=== PATIENT | female | born 1995 | race Caucasian/White ===

== ENCOUNTER 2017-04-04 14:57 | Emergency (ER) | payer OTHER, BC ==
[~2017-04-04] VITALS: Ht 160 cm; Wt 112.0 kg
[2017-04-04 15:04] VITALS: TEMP 37.5; Ht 160 cm; Wt 112.0 kg
[2017-04-04] MEDS ORDERED: ASPI-390 PO (15:37)
--- NOTE | 2017-04-04 16:03 | DIAGNOSTIC IMAGING REPORT ---
STANDING LUMBAR SPINE RADIOGRAPHS CLINICAL HISTORY: Low back pain/injury. COMPARISON: None FINDINGS: There is slight rightward curvature of the lumbar spine. Alignment is otherwise anatomic. Vertebral body heights are maintained. No lumbar spine fracture is identified. No osseous lesion is identified. The disc spaces are preserved. IMPRESSION: 1. Slight rightward curvature of the lumbar spine. 2. Otherwise, unremarkable radiographic appearance of the lumbar spine. Electronically signed by: Nito Mcclellan M.D. 04/04/2017 4:02 PM Dictated Date/Time: 04/04/2017 4:01 PM
[2017-04-04] MEDS ORDERED: OXYCODONE HCL IR 5 MG TAB (IMMEDIATE RELEASE) PO STA (16:15)
[2017-04-04] MEDS ORDERED: PRED50TA PO (16:18)
[2017-04-04] MEDS ORDERED: OXYC1TAB3 PO (16:18)
[2017-04-04] MEDS ORDERED: CYCL10TA6 PO (16:18)
[2017-04-04] MEDS ORDERED: OXYCODONE IR HOME PACK PO ONE (16:30)
[2017-04-04 16:43] VITALS: BP 125/96; PULSE 95; O2SAT 97
--- NOTE | 2017-04-05 09:18 | EMERGENCY ROOM VISIT NOTE ---
ED Visit Note First contact with patient: 15:21 CHIEF COMPLAINT: Low back pain HISTORY OF PRESENT ILLNESS: This 21-year-old female patient presents to the emergency department complaining of pain in the low back which began earlier today. 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 The patient was able to prevent this, however in doing so caused injury to her low back. The pain was gradual in onset, is now constant and worse with movement. The patient notes the pain as dull and a 6/10. The patient has taken nothing for relief of the pain. The patient denies any loss of control of their bowel or bladder functions. There has been no leg numbness or weakness, and no change in sensation. No nausea or vomiting or abdominal pain. No chest pain or shortness of breath. The patient has not had prior back injuries. No dysuria or increased urinary frequency. REVIEW OF SYSTEMS: A review of systems was performed with positives and pertinent negatives listed in the history of present illness. All other systems were reviewed and are negative. ALLERGIES: Zofran, tramadol MEDICATIONS: See EMR PMH: No pertinent chronic medical disease SOCIAL HISTORY: Employed and lives locally PHYSICAL EXAM: VITALS: Vitals are noted on the nurse's note and reviewed by myself. Vital signs stable. GENERAL: White female, in no acute distress, nondiaphoretic, well-developed well -nourished. SKIN: The skin was without rashes, erythema, edema, or bruising. Capillary refill less than 2 seconds. NECK: Supple without nuchal rigidity. No cervical spine tenderness. No paraspinous muscle tenderness. HEART: Regular rate and rhythm without murmurs gallops or rubs. LUNGS: Clear to auscultation bilaterally without wheezes, rales or rhonchi. ABDOMEN: Positive bowel sounds x 4. Normal tympanic percussion. Soft, nontender, without masses or organomegaly. Lee sign negative. MUSCULOSKELETAL: No muscle atrophy, erythema, or edema noted of the back. There is no tenderness over the lumbar spinous processes. There is mild tenderness over the paraspinous muscles bilateral. There is no tenderness over the thoracic spine or paraspinous muscles. There are no muscle spasms present. The patient is slow to move around with maximum tenderness with flexion. Positive straight leg raise test. NEURO: Patient was alert and oriented to person place and time. Normal sensation to light and sharp touch. Deep tendon reflexes 2+ in the lower extremities. Dorsalis pedis pulse 2+ bilaterally. Strength 5/5 and equal in the bilateral lower extremities. STANDING LUMBAR SPINE RADIOGRAPHS CLINICAL HISTORY: Low back pain/injury. COMPARISON: None FINDINGS: There is slight rightward curvature of the lumbar spine. Alignment is otherwise anatomic. Vertebral body heights are maintained. No lumbar spine fracture is identified. No osseous lesion is identified. The disc spaces are preserved. IMPRESSION: 1. Slight rightward curvature of the lumbar spine. 2. Otherwise, unremarkable radiographic appearance of the lumbar spine. EMERGENCY DEPARTMENT COURSE: Physical exam and history were performed. Nursing notes and EMR were reviewed. The patient appears to have low back pain that occurred at work this afternoon. The patient does have some paravertebral tenderness in the lower lumbar spine. X-rays obtained and does not show acute process. The patient does not have evidence of infection or cauda equina. She will be treated conservatively with instructions as below. She is to follow with Workmen's Compensation for further care and management. She is otherwise invited back to ER with any new, worsening, or concerning symptoms. Current/Historical Medications Scheduled Cyclobenzaprine Hcl (Flexeril), 10 MG PO TID Oxycodone Immediate Rel Tab (Roxicodone Ir), 1 TAB PO Q6 Prednisone (Prednisone), 50 MG PO DAILY Scheduled PRN Nlcylzw-Fylfasmhsaqed-Dbesakda (Excedrin Migraine), 1 TAB PO Q6H PRN for Migraine Allergies Coded Allergies: Ondansetron (Verified Adverse Reaction, Unknown, N/V, 04/04/17) Tramadol (Verified Adverse Reaction, Unknown, N/V, 04/04/17) Uncoded Allergies: BEE STINGS (Allergy, Unknown, UNKNOWN, 04/04/17) Vital Signs Date Time Temp Pulse Resp B/P (MAP) Pulse Ox O2 Delivery O2 Flow Rate FiO2 04/04/17 16:43 95 16 125/96 97 04/04/17 15:04 37.5 118 20 121/82 96 Room Air Medications Administered Medications (Trade) Dose Ordered Sig/Pam Route Start Time Stop Time Status Last Admin Dose Admin Oxycodone HCl (Roxicodone Immediate Rel Tab) 5 mg NOW STAT PO 04/04/17 16:15 04/04/17 16:16 DC 04/04/17 16:25 5 MG Oxycodone HCl (Roxicodone Immediate Rel 5MG Home Pack) 1 homepack UD ONCE PO 04/04/17 16:30 04/04/17 16:31 DC 04/04/17 16:41 1 HOMEPACK Departure Information Impression Primary Impression: Low back pain Dispostion Home / Self-Care Condition GOOD Prescriptions Prednisone (Prednisone) 50 Mg Tab 50 MG PO DAILY for 4 Days, #4 TAB Prov: Tano Carvalho PA-C 04/04/17 Cyclobenzaprine Hcl (FLEXERIL) 10 Mg Tab 10 MG PO TID for 7 Days, #21 TAB Prov: Tano Carvalho PA-C 04/04/17 Oxycodone Immediate Rel Tab (ROXICODONE IR) 5 Mg Tab 1 TAB PO Q6 for Pain, #12 TAB Prov: Tano Carvalho PA-C 04/04/17 Forms HOME CARE DOCUMENTATION FORM, Work Instructions, Additional Instructions: Patient was seen and evaluated today in the emergency department fo medical care. Return to work at the instruction of Workmen's Compensation. IMPORTANT VISIT INFORMATION Patient Instructions [facility] Additional Instructions You were seen and evaluated today on an emergency basis only. This is not a substitute for, or an effort to provide, complete comprehensive medical care. It is not possible to recognize and treat all injuries or illnesses in a single emergency department visit. For this reason it is recommended that you followup with Workmen's Compensation on as scheduled for ongoing care and evaluation. For baseline pain relief you may alternate ibuprofen and acetaminophen every 4 hours for pain control. Take 600 mg ibuprofen (Advil) and then 4 hours later take 1000 mg acetaminophen (Tylenol). Do not take more than 3000 mg acetaminophen in a single day. Oxycodone (OxyIR) 5mg: Take ONE pill every SIX hours for breakthrough pain. Avoid alcohol, operating machinery or dangerous equipment, working on ladders or roofs, DRIVING, or situations where being under the influence may be dangerous. It is recommended to use an hsmd-rbl-gokemyw stool softener such as Colace, 100mg twice daily while taking this medication to avoid constipation. Flexeril 1 tablet up to 3 times a day as needed for muscle spasms. No driving, working, or alcohol use with Flexeril. Take prednisone as prescribed You are welcome to return to the emergency department anytime with new, worsening, or concerning symptoms. Work Instructions Additional Work Instructions: Patient was seen and evaluated today in the emergency department for medical care. Return to work at the instruction of Workmen's Compensation.
== END 2017-04-04 16:45 | disposition home or self-care (01) ==
LOC: C.EDB 14:59 → C.EDD 16:45
DX: M54.5 Low back pain (principal)

== ENCOUNTER → 2017-07-21 | Outpatient (CLI) | payer BC ==
[~2017-07-21] MED LIST: ASPI-390 PO; OXYC1TAB3 PO
== END | disposition home or self-care (01) ==
LOC: C.LABMFLN 13:27
PROVIDERS: ATTEND Obstetrics & Gynecology
DX: Z34.90 Encounter for supervision of normal pregnancy, unspecified, unspecified trimester (principal)

== ENCOUNTER → 2017-07-25 | Outpatient (CLI) | payer BC | END | disposition home or self-care (01) | LOC: C.LAB1850 11:10 | PROVIDERS: ATTEND Obstetrics & Gynecology | DX: Z34.90 Encounter for supervision of normal pregnancy, unspecified, unspecified trimester (principal); Z3A.00 Weeks of gestation of pregnancy not specified ==

== ENCOUNTER → 2017-08-16 | Outpatient (CLI) | payer BC | END | disposition home or self-care (01) | LOC: C.LABSPEC 14:18 | PROVIDERS: ATTEND Obstetrics & Gynecology | DX: O09.291 Supervision of pregnancy with other poor reproductive or obstetric history, first trimester (principal) ==

== ENCOUNTER → 2017-08-18 | Outpatient (CLI) | payer BC | END | disposition home or self-care (01) | LOC: C.PAPS 14:49 | PROVIDERS: ATTEND Obstetrics & Gynecology | DX: O09.291 Supervision of pregnancy with other poor reproductive or obstetric history, first trimester (principal); Z3A.00 Weeks of gestation of pregnancy not specified ==

== ENCOUNTER → 2017-08-18 | Outpatient (CLI) | payer BC ==
[2017-08-18 12:14] LABS: BASO % 0.3 %; BASO ABS # 0.02 K/uL (0-0.2); EOS % 0.4 %; EOS ABS # 0.03 K/uL (0-0.5); HEMATOCRIT 37.1 % (37-47); HEMOGLOBIN 12.5 g/dL (12.0-16.0); IG# 0.02 K/uL (0.00-0.02); LYMPH % 29.4 %; LYMPH ABS # 2.16 K/uL (1.2-3.4); MEAN CORPUSCULAR HGB CONC 33.7 g/dl (32-36); MEAN PLATELET VOLUME 10.8 fL (7.4-10.4); MONO % 7.4 %; MONO ABS # 0.54 K/uL (0.11-0.59); NEUT % 62.2 %; NEUT ABS # 4.57 K/uL (1.4-6.5); PLATELET COUNT 275 K/uL (130-400); RED CELL DISTRIBUTION WIDTH CV 14.1 % (11.5-14.5); RED CELL DISTRIBUTION WIDTH SD 42.7 fL (36.4-46.3); WHITE BLOOD COUNT 7.34 K/uL (4.8-10.8)
== END | disposition home or self-care (01) ==
LOC: C.LAB1850 11:17
PROVIDERS: ATTEND Obstetrics & Gynecology
DX: O09.291 Supervision of pregnancy with other poor reproductive or obstetric history, first trimester (principal); Z3A.00 Weeks of gestation of pregnancy not specified

== ENCOUNTER 2017-10-12 05:34 | Inpatient (IN) | payer BC ==
[~2017-10-12] VITALS: Ht 162.6 cm; Wt 107.0 kg
[~2017-10-12 05:34] MED LIST changes: -OXYC1TAB3 PO
[2017-10-12 07:02] LABS: HEMATOCRIT 34.4 % (37-47); HEMOGLOBIN 11.8 g/dL (12.0-16.0); MEAN CELL VOLUME 82.3 fL (80-100); MEAN CORPUSCULAR HEMOGLOBIN 28.2 pg (25-34); MEAN CORPUSCULAR HGB CONC 34.3 g/dl (32-36); MEAN PLATELET VOLUME 9.9 fL (7.4-10.4); PLATELET COUNT 251 K/uL (130-400); RED CELL DISTRIBUTION WIDTH CV 13.9 % (11.5-14.5); RED CELL DISTRIBUTION WIDTH SD 42.1 fL (36.4-46.3); WHITE BLOOD COUNT 10.35 K/uL (4.8-10.8)
[2017-10-12] MEDS ORDERED: OXYCODONE/ACETAMINOPHEN 5-325 TAB PO PRN (07:15)
[2017-10-12] MEDS ORDERED: HYDROCORTISONE ACETATE 25 MG SUPP PR PRN (07:15)
[2017-10-12] MEDS ORDERED: ACETAMINOPHEN 325 MG TAB PO PRN (07:15)
[2017-10-12] MEDS ORDERED: OXYTOCIN INJ 10 UNITS/ML VIAL IM ONE (07:15)
[2017-10-12] MEDS ORDERED: IBUPROFEN 600 MG TAB PO PRN (07:15)
[2017-10-12] MEDS ORDERED: SUPERCREAM 0.870 % 15GM JAR EXT PRN (07:15)
[2017-10-12] MEDS ORDERED: BENZOCAINE 20% AER SPR 82.5 GM CAN EXT PRN (07:15)
[2017-10-12] MEDS ORDERED: PROMETHAZINE HCL 25 MG TAB PO PRN (07:15)
--- NOTE | 2017-10-12 07:24 | History and Physical ---
History & Physical Date & Time of Service: Oct 12, 2017 at 07:16 Chief Complaint: Incomplete Miscarriage Primary Care Physician: Luis Felipe Martin M.D. History of Present Illness Source: patient Patient is a 22-year-old 3 P0 020 at 16 weeks 1 day who presented this morning to labor and delivery with passage of blood clots. Due to her history of at 16 weeks in 19 weeks, she had a cerclage placed at [facility] at 13 weeks and was receiving Soso injections. She reports no other symptoms, other than some pelvic cramping. Denies fever/ chills/nausea/dysuria. Her is otherwise uncomplicated. Her prior delivery at 19 weeks required D&C to remove placenta. Past Medical/Surgical History Medical Problems: (1) Complete miscarriage (2) Low back pain Family History noncontributory Social History Smoking Status: Current Every Day Smoker Allergies Coded Allergies: BEE STING (Verified Allergy, Unknown, unknown, 10/12/17) Ondansetron (Verified Adverse Reaction, Unknown, N/V, 04/04/17) Tramadol (Verified Adverse Reaction, Unknown, N/V, 04/04/17) Home Medications Scheduled PRN Ppdkzkv-Zqvzcnrammaxv-Pgovdjti (Excedrin Migraine), 1 TAB PO Q6H PRN for Migraine Review of Systems Constitutional: No problem reported Respiratory: No problem reported Cardiovascular: No problem reported Abdomen: No problem reported Genitourinary - Female: + vaginal bleeding Neurologic: No problem reported Psychiatric: No problem reported Physical Exam General Appearance: WD/WN, + mild distress, + obese Respiratory/Chest: lungs clear, normal breath sounds, no respiratory distress Cardiovascular: regular rate, rhythm Abdomen/GI: non tender, soft Genitourinary - Female: + pertinent finding (Speculum exam reveals large gush of clear, blood-tinged fluid. Upon opening speculum, the fetus was in vaginal canal.) Extremities/Musculoskelatal: normal inspection Neurologic/Psych: alert, normal mood/affect, oriented x 3 Skin: normal color, warm/dry Diagnostics Laboratory Results Results Past 24 Hours Test 10/12/17 06:46 Range/Units White Blood Count 10.35 4.8-10.8 K/uL Red Blood Count 4.18 4.2-5.4 M/uL Hemoglobin 11.8 12.0-16.0 g/dL Hematocrit 34.4 37-47 % Mean Corpuscular Volume 82.3 80-100 fL Mean Corpuscular Hemoglobin 28.2 25-34 pg Mean Corpuscular Hemoglobin Concent 34.3 32-36 g/dl RDW Standard Deviation 42.1 36.4-46.3 fL RDW Coefficient of Variation 13.9 11.5-14.5 % Platelet Count 251 130-400 K/uL Mean Platelet Volume 9.9 7.4-10.4 fL Diagnostic Radiology Limited bedside abdominal ultrasound performed. Positive movement and cardiac activity, however the fetus appears very low in the pelvis. Minimal amniotic fluid surrounding baby. Impression Assessment and Plan 1. 22-year-old 020 at 16 weeks 1 day 2. Inevitable miscarriage 3. Cerclage in place Upon examination of patient, delivery of fetus occurred. Please see vaginal delivery summary for details. 1 dose of Pitocin IM given after delivery. The patient will need removal of cerclage, and we are waiting for delivery of placenta. Resuscitation Status VTE Prophylaxis Will order VTE Prophylaxis: No Reason for no VTE drug order: Treatment not indicated Reason no Mechanical VTE Order: Treatment not indicated
[2017-10-12] MEDS ORDERED: MISOPROSTOL 200 MCG TAB ONE (07:44)
[2017-10-12] MEDS ORDERED: MISOPROSTOL 200 MCG TAB PR STA (07:46)
[2017-10-12] MEDS ORDERED: PROMETHAZINE HCL INJ 25 MG/ML 1 ML VIAL IM STA ×2 (07:50→13:32)
[2017-10-12] MEDS ORDERED: MoRPHine SULFATE 10 MG/ML CARP/VIAL IM STA (07:50)
[2017-10-12] MEDS ORDERED: DOCUSATE SODIUM 100 MG CAP PO SCH (08:00)
[2017-10-12] MEDS: LACTATED RINGER'S 1000ML 1,000 ML IV SCH ×2 (08:22→13:34)
--- NOTE | 2017-10-12 08:37 | Vaginal Delivery Summary ---
Vaginal Delivery Summary Speculum was placed, visualization of arm and head in vagina. Gush of clear, blood-tinged fluid. Speculum removed and fetus delivered spontaneously. The baby was moving all 4 limbs. The cord was doubly clamped and cut, and the baby was swaddled and handed to mother. EBL 200cc total, including clots in underwear that were present on arrival. 10u IM pitocin given. Discussed with patient that placenta and cerclage suture are still in situ - attempted to perform speculum exam to visualize cervix, due to patient discomfort and blood in vault, unable to see cerclage. Cerclage is palpable in right cervix. IM morphine/phenergan for pain control and nausea. 800 mcg cytotec given DE. Discussed that we are hopeful that the placenta will pass, however if it does not or if bleeding increases, will need to proceed to OR for D&C. Patient is agreeable to plan.
[2017-10-12 08:38] VITALS: Ht 162.6 cm; Wt 107.0 kg
[2017-10-12] MEDS: CEFAZOLIN IV 2,000 MG in SYRINGE 0 ML IV SCH ×2 (09:52→17:34)
--- NOTE | 2017-10-12 10:20 | History and Physical ---
History & Physical Date Oct 12, 2017. Chief Complaint retained placenta History of Present Illness The patient is a 22 year old female with iup at 16 weeks with hx of a 16 week and 19 week delivery. Had cerclage placed at 14 weeks. Unfortunately the patient labored and delivered the baby. She now has a retained placenta. Trialed im pitocin and rectal cytotec without help. Bleeding has not been excessive. REcommend D&C for removal. She is agreeable. Past Medical/Surgical History Medical Problems: (1) Complete miscarriage acid reflux, migraines, obesity psxhx--D&C, ankle surgery, oral Additional History Hepatic Disease: No Endocrine Disorder: No Kidney Disease: No Hypertension: No Heart Disease: No Bleeding Tendencies: No Infectious Diseases: No Allergies Coded Allergies: BEE STING (Verified Allergy, Severe, HIVES, 10/12/17) Physical Examination Skin: warm/dry Neck: supple Respiratory/Chest: lungs clear Cardiovascular: regular rate, rhythm Abdomen / GI: normal bowel sounds, non tender Genitourinary - Female: external genitalia normal (on speculum exam, the cord is coming from the cervix, can follow it up with my finger and still feels high within the cervix, with gentle traction, no movement.) Diagnosis Retained placenta Plan of Treatment Plan to proceed with D&C. r/b/se of the surgery reviewed with the patient including but not limited to bleeding, transfusion, infection, damage to surrounding structures with need for further surgery hospitalization or intervention, uterine scarring., further retained products with need for more surgery. Do not think further expectant management will result in delivery of placenta. has been started on ancef and has already received first dose.
[2017-10-12] MEDS ORDERED: MIDAZOLAM HCL 1 MG/ML 2ML VIAL ONE (10:39)
[2017-10-12] MEDS ORDERED: ONDANSETRON INJ 2 MG/ML 2 ML VIAL ONE (10:39)
[2017-10-12] MEDS ORDERED: PROPOFOL IV EMULSION 10 MG/ML 20 ML VIAL IV ONE (10:39)
[2017-10-12] MEDS ORDERED: DEXAMETHASONE SOD INJ 4 MG/ML VIAL ONE (10:39)
[2017-10-12] MEDS ORDERED: FENTANYL CITRATE INJ 50 MCG/1 ML 2 ML VIAL ONE ×2 (10:39→12:16)
[2017-10-12] MEDS ORDERED: LIDOCAINE HCL 2% 2 ML VIAL (20MG/ML) ONE (10:39)
[2017-10-12] MEDS ORDERED: EpHEDrine SULFATE INJ 50 MG/ML AMP IV PRN (12:00)
[2017-10-12] MEDS ORDERED: FENTANYL CITRATE INJ 50 MCG/1 ML 2 ML VIAL IV PRN (12:00)
[2017-10-12] MEDS ORDERED: ONDANSETRON INJ 2 MG/ML 2 ML VIAL IV PRN (12:00)
[2017-10-12] MEDS ORDERED: ATROPINE SULFATE 0.1 MG/ML 5ML SYR IV PRN (12:00)
--- NOTE | 2017-10-12 12:10 | [facility] Post Operative Brief Note ---
Immediate Operative Summary Operative Date Oct 12, 2017. Pre-Operative Diagnosis Retained placenta Post-Operative Diagnosis Retained placenta Procedure(s) Performed Dilation and curettage and evacuation with ultrasound [place] Surgeon Dr. Bree Sinclair Circuit Manager Surgeon(s) None Estimated Blood Loss 500 ml Findings Consistent with Post-Op Diagnosis Fluids (cc crystalloids) 1600CC Specimens A: Retained Placenta Drains None Anesthesia Type General Complication(s) none Disposition Accompanied Pt To Recover: no Disposition: Recovery Room / PACU
--- NOTE | 2017-10-12 12:23 | DIAGNOSTIC IMAGING REPORT ---
INTRAOPERATIVE ULTRASOUND CLINICAL HISTORY: Dilatation and curettage procedure. COMPARISON STUDY: No priors. FINDINGS: 5 spot sonographic images of the uterus from a D&C procedure are presented. Only the marketing secretary was present during the procedure.. Initial images show a markedly thickened and heterogeneous endometrium. Foci of internal flow are noted on color imaging. This has largely resolved on the final image. Echogenic reflectors with dirty shadowing within the endometrium likely represent gas. IMPRESSION: Intraoperative sonographic images as above. See operative report for detailed findings. Electronically signed by: Darnell Monique M.D. 10/12/2017 12:22 PM Dictated Date/Time: 10/12/2017 12:20 PM
--- NOTE | 2017-10-12 12:23 | DIAGNOSTIC IMAGING REPORT ---
INTRAOPERATIVE ULTRASOUND CLINICAL HISTORY: Dilatation and curettage procedure. COMPARISON STUDY: No priors. FINDINGS: 5 spot sonographic images of the uterus from a D&C procedure are presented. Only the lead ingot molder was present during the procedure.. Initial images show a markedly thickened and heterogeneous endometrium. Foci of internal flow are noted on color imaging. This has largely resolved on the final image. Echogenic reflectors with dirty shadowing within the endometrium likely represent gas. IMPRESSION: Intraoperative sonographic images as above. See operative report for detailed findings. Electronically signed by: Darnell Monique M.D. 10/12/2017 12:22 PM Dictated Date/Time: 10/12/2017 12:20 PM
[2017-10-12] MEDS ORDERED: SUCCINYLCHOLINE CHLORIDE 20 MG/ML 10 ML VIAL IV ONE (12:31)
[2017-10-12] MEDS ORDERED: OXYTOCIN INJ 10 UNITS/ML VIAL ONE (12:31)
[2017-10-12 13:10] VITALS: BP 134/58; PULSE 85; TEMP 37; O2SAT 94
--- NOTE | 2017-10-12 13:10 | Anesthesiology Progress Note ---
Anesthesia Post Op Note Date & Time Oct 12, 2017 at 13:10 Vital Signs Pain Intensity: 0 Vital Signs Past 12 Hours Date Time Temp Pulse Resp B/P (MAP) Pulse Ox O2 Delivery O2 Flow Rate FiO2 10/12/17 13:00 37 84 16 131/69 94 Room Air 10/12/17 12:50 87 16 130/74 99 Room Air 10/12/17 12:40 36.6 76 16 132/78 99 Oxymask 10 10/12/17 12:30 36.6 81 16 134/76 99 Oxymask 10 10/12/17 12:21 36.6 91 16 117/80 98 Oxymask 10 Notes Mental Status: alert / awake / arousable, participated in evaluation Pt Amnestic to Procedure: Yes Nausea / Vomiting: adequately controlled Pain: adequately controlled Airway Patency, RR, SpO2: stable & adequate BP & HR: stable & adequate Hydration State: stable & adequate Anesthetic Complications: no major complications apparent
[2017-10-12 13:13] LABS: BASO % 0.1 %; BASO ABS # 0.02 K/uL (0-0.2); EOS % 0.3 %; EOS ABS # 0.04 K/uL (0-0.5); HEMATOCRIT 30.7 % (37-47); HEMOGLOBIN 10.4 g/dL (12.0-16.0); IG# 0.07 K/uL (0.00-0.02); LYMPH % 13.9 %; LYMPH ABS # 2.13 K/uL (1.2-3.4); MEAN CELL VOLUME 83.2 fL (80-100); MEAN CORPUSCULAR HEMOGLOBIN 28.2 pg (25-34); MEAN CORPUSCULAR HGB CONC 33.9 g/dl (32-36); MEAN PLATELET VOLUME 9.8 fL (7.4-10.4); MONO % 4.1 %; MONO ABS # 0.63 K/uL (0.11-0.59); NEUT % 81.1 %; NEUT ABS # 12.44 K/uL (1.4-6.5); PLATELET COUNT 203 K/uL (130-400); RED CELL DISTRIBUTION WIDTH CV 14.1 % (11.5-14.5); RED CELL DISTRIBUTION WIDTH SD 42.8 fL (36.4-46.3); WHITE BLOOD COUNT 15.33 K/uL (4.8-10.8)
[2017-10-12] MEDS ORDERED: KETOROLAC TROMETHAMINE 30 MG/ML VIAL IV STA (13:32)
[2017-10-12] MEDS ORDERED: PROMETHAZINE HCL INJ 25 MG in SODIUM CHLORIDE 0.9% 50ML 50 ML IV STA (13:47)
--- NOTE | 2017-10-12 14:44 | OPERATIVE REPORT ---
DATE OF OPERATION: 10/12/2017 PREOPERATIVE DIAGNOSES: 1. Retained placenta. 2. Intact cervical cerclage. POSTOPERATIVE DIAGNOSES: 1. Retained placenta. 2. Intact cervical cerclage. PROCEDURES: 1. Dilation and evacuation with curettage under ultrasound guidance. 2. Excision of cerclage. SURGEON: Bree Sinclair MD ANESTHESIA: General per endotracheal tube. ESTIMATED BLOOD LOSS: 500 mL. FLUIDS: 1600 mL. URINE OUTPUT: 400 mL of concentrated yellow urine drained from the bladder at the beginning of the procedure. INDICATIONS: Chery is a 22-year-old white female, 3, para 0-0-2-0 who presented to labor and delivery with a 16-week labor and delivery. The cord was clamped and cut. Unfortunately, the placenta did not deliver despite IM Pitocin and rectal Cytotec. Therefore, she was taken to the OR for removal. FINDINGS: Uterus on exam was 14-16 weeks' size. There was a blue stitch that was tied at the 12 o'clock area that was removed using scissors. The cervix was 3-4 cm dilated at that time. The placenta was observed via ultrasound and removed in its entirety until there was no evidence by ultrasound of further retained placenta or products. COMPLICATIONS: None. DRAINS: None. DISPOSITION: To recovery room in stable condition. PROCEDURE: The patient was taken to the operating room. She was identified verbally and by bracelet. The patient was put to sleep by general anesthesia. She was placed in dorsal lithotomy position in [employer] durandy-cane stirrups and she was prepped and draped in normal sterile fashion. Timeout was held identifying correct patient, procedure, and positioning. The bladder was drained of urine and exam under anesthesia with the above-noted findings. A weighted speculum was placed in the posterior vagina. The anterior lip of the cervix was identified. There was a blue stitch emanating from that. Traction was placed on the stitch using an Allis clamp and the stitch was cut and removed. It appeared to be removed in its entirety. Then ultrasound was called for and was done and placenta was noted. A 14 mm suction curet was then used with several passes to remove the placenta, also a ring forceps was used as well. Curettage with a banjo curette was done in 365 degrees and one more pass was made with the suction curet until all have until it appeared that the uterus was empty by ultrasound. Then we watched carefully for bleeding. Pitocin was given through the IV, as well as IM Methergine. She had previously been given 800 mcg of Cytotec rectally. Once the bleeding seemed to be good, the procedure was terminated. All sponge, lap, and instruments were correct. The patient was taken out of the operating room in stable condition. I attest to the content of the Intraoperative Record and any orders documented therein. Any exception s are noted below.
[2017-10-12] MEDS ORDERED: MTR600X PO (17:54)
--- NOTE | 2017-10-12 17:58 | Discharge Instructions ---
Discharge Instructions Date of Service Oct 12, 2017. Admission Reason for Admission: Complete Miscarriage Discharge Discharge Diagnosis / Problem: s/p vaginal delivery and removal of placenta Discharge Goals Goal(s): Specific goals Activity Recommendations Activity Limitations: per Instructions/Follow-up section . Instructions / Follow-Up Instructions / Follow-Up . ACTIVITY RECOMMENDATIONS: * Vaginal rest (no tampons, douching, intercourse) until after doctor 's visit. * control as discussed with doctor. * Wear a bra for 24 hours/day for comfort. SPECIAL CARE INSTRUCTIONS: Medications: * vitamins, one tablet daily. Continue taking until prescription is complete. Call you doctor if: * Temperature greater than or equal to 100.4 degrees F or 38.0 degrees C. * Bleeding becomes heavier than the heaviest part of your period - saturating a sanitary pad within an hour. * Passing large clots. * Unrelieved pain. * Bleeding has a foul smelling odor. * Signs and symptoms of phlebitis: leg pain, warm, red or swollen area on leg. incision has increased pain, redness, swelling, presence of any drainage, or if the incision starts to open up. FOLLOW UP VISIT: If appointment is not already scheduled: Please call doctor's office to schedule a follow-up appointment in 2 weeks. Current Hospital Diet Patient's current hospital diet: Regular OB Diet Discahrge Diet Recommended Diet: Regular Diet Procedures Procedures Performed: Dilation and curettage and evacuation with ultrasound [place] Pending Studies Studies pending at discharge: no Medical Emergencies . Who to Call and When: Medical Emergencies: If at any time you feel your situation is an emergency, please call 911 immediately. . Non-Emergent Contact Non-Emergency issues call your: Extension Agent Call Non-Emergent contact if: temperature is above 100.5, your pain is not controlled, your pain is worsening . . "Provider Documentation" section prepared by Bree Sinclair. .
[2017-10-13] MEDS ORDERED: BISACODYL 5 MG TABEC PO SCH (20:00)
== END 2017-10-12 19:31 | disposition home or self-care (01) | DRG 770 ==
LOC: C.LD 05:34 → C.OPB 05:34 → C.LD 06:32 → C.OPB 06:32
PROVIDERS: ADMIT Obstetrics & Gynecology; ATTEND Obstetrics & Gynecology
PROC: 10D17ZZ Extraction of Products of Conception, Retained, Via Natural or Artificial Opening (ICD-10-PCS; 2017-10-12)
PROC: 10E0XZZ Delivery of Products of Conception, External Approach (ICD-10-PCS; principal; 2017-10-12 10:30)
DX: O03.9 Complete or unspecified spontaneous abortion without complication (principal); Z68.41 Body mass index [BMI] 40.0-44.9, adult; O73.0 Retained placenta without hemorrhage; O09.212 Supervision of pregnancy with history of pre-term labor, second trimester; O99.212 Obesity complicating pregnancy, second trimester; O99.332 Smoking (tobacco) complicating pregnancy, second trimester; F17.200 Nicotine dependence, unspecified, uncomplicated; Z3A.16 16 weeks gestation of pregnancy; Z37.0 Single live birth; Z88.8 Allergy status to other drugs, medicaments and biological substances; Z88.5 Allergy status to narcotic agent; Z91.030 Bee allergy status